=== PATIENT | male | born 1990 | race Caucasian/White ===

== ENCOUNTER 2023-03-17 20:27 | Emergency (ER) | payer OTHER, SELFPAY ==
[2023-03-17 20:36] VITALS: BP 150/92; PULSE 129; RESP 16; TEMP 36.7; O2SAT 95
--- NOTE | 2023-03-17 21:45 | ED.NURSE ---
Dressing placed over sutures, used telfa, applied gauze, and secured in place with kerlix.
--- NOTE | 2023-03-17 23:46 | ED.GENADULT ---
HPI - General Adult General Date Seen: 03/17/23 Chief complaint: Laceration/Wound Stated complaint: cut between thumb and index fingers Time Seen by Provider: 03/17/23 20:49 History of Present Illness HPI narrative: This is a pleasant generally healthy 32-year-old male who presents to the ER today with a linear laceration affecting the webspace between his left hand thumb and index finger. He accidentally lacerated his left hand today when he is using a juke box servicer to set up a baby gate for his new puppy. He did have some fairly brisk bleeding from the wound and applied direct pressure prior to coming in. He has noted some blood soaking through the gauze that he apply. He has a single laceration in the webspace between his thumb and index finger. No other injuries. No associated numbness or tingling in his fingers. Normal range of motion at the MCP, and interphalangeal joints of the thumb and index finger. He thinks he is probably up to date with tetanus because he got updated a few years ago when he cut his finger while working at [employer]. He has no diabetes or immunosuppression. No anticoagulants. Related Data Allergies Allergy/AdvReac Type Severity Reaction Status Date / Time No Known Drug Allergies Allergy Verified 03/17/23 20:35 [facility] Social History Smoking Status: Never smoker Non-prescribed substance use: denies use Exam Narrative: Exam Narrative: Constitutional: Appears well-developed and well-nourished. Alert. Conversant. Non toxic. HENT: Head: Atraumatic. Nose: Nose normal. Mouth/Throat: Oral mucosa is clear and moist. no trismus. Pharynx normal. Tonsils symmetric. No tonsillar enlargement, erythema, or exudate. Eyes: Conjunctivae normal. EOM normal. Pupils equal, round, and reactive to light. No scleral icterus. Neck: Normal range of motion. Neck supple. No tracheal deviation present. Cardiovascular: Normal rate, regular rhythm. No gallop. No friction rub. No murmur heard. Symmetric radial artery pulses Pulmonary/Chest: Effort normal. No stridor. No respiratory distress. No wheezes. No rales. No rhonchi . No tenderness. Abdominal: Soft. Bowel sounds normal. No distension. No mass. No tenderness. No rebound. No guarding. Musculoskeletal: RUE: Normal range of motion. No tenderness. No deformity LUE: He has a 3 cm linear laceration affecting the webspace between his thumb and index finger. It does extend more onto the dorsum of the hand not onto the palmar surface. When I inspect the wound he does have a tiny pulsatile bleeder from what appears to be a artery just below the surface of his skin. He has intact radial, median, ulnar nerve motor and sensory function. Intact digital nerve function in the thumb and index finger. Normal MCP and IP joint flexion and extension of the thumb. Normal MCP, PIP, DI P joint flexion extension in the finger. We placed a blood pressure cuff on the forearm and created a temporary tourniquet. Wound inspected in a bloodless field. No foreign body. No visible deep structure injuries. Wound was closed using simple interrupted sutures . Care was taken to place this did for suture directly over the small artery that had been bleeding prior to the tourniquet. After tourniquet was taken down he had no further bleeding. Good tamponade of the small bleeding contain is artery. Normal range of motion. No tenderness. No deformity RLE: Normal range of motion. No edema. No tenderness. No deformity LLE: Normal range of motion. No edema. No tenderness. No deformity Lymph: No cervical adenopathy. Neurological: Alert and oriented to person, place, and time. Normal strength. CN II-VII intact. No sensory deficit. GCS eye subscore is 4. GCS verbal subscore is 5. GCS motor subscore is 6. Normal coordination Skin: Skin is warm and dry. No rash noted. No pallor. Normal capillary refill. Psychiatric: Normal mood. Normal affect. Const: Vital Signs, click to edit/add: Vital Signs - 24 hr 03/17/23 20:36 Temperature 98.1 F Pulse Rate [Right Pulse Oximeter] 129 H Respiratory Rate 16 Blood Pressure [Ri ght Upper Arm] 150/92 H Pulse Oximetry 95 Oxygen Delivery Me thod Room Air Course Vital Signs Vital signs: Initial Vital Signs Temperature 98.1 F 03/17/23 20:36 Temperature Source Temporal Artery Scan 03/17/23 20:36 Pulse Rate 129 H 03/17/23 20:36 Pulse Rhythm Regular 03/17/23 20:36 Respiratory Rate 16 03/17/23 20:36 Blood Pressure 150/92 H 03/17/23 20:36 Blood Pressure Mean 111 H 03/17/23 20:36 Blood Pressure Position Sitting 03/17/23 20:36 Pulse Oximetry 95 03/17/23 20:36 Oxygen Delivery Method Room Air 03/17/23 20:36 Vital Signs Temperature 98.1 F 03/17/23 20:36 Pulse Rate 129 H 03/17/23 20:36 Respiratory Rate 16 03/17/23 20:36 Blood Pressure 150/92 H 03/17/23 20:36 Pulse Oximetry 95 03/17/23 20:36 Oxygen Delivery Method Room Air 03/17/23 20:36 Temperature 98.1 F 03/17/23 20:36 Pulse Rate 129 H 03/17/23 20:36 Respiratory Rate 16 03/17/23 20:36 Blood Pressure 150/92 H 03/17/23 20:36 Pulse Oximetry 95 03/17/23 20:36 Oxygen Delivery Method Room Air 03/17/23 20:36 Medical Decision Making MDM Narrative Medical decision making narrative: Findings and exam are consistent with an uncomplicated laceration which was repaired as noted above. There is no evidence at this time to suggest any associated fracture or foreign body. There is no evidence to suggest tendon and patient is neurologically in tact. He did have a small pulsatile bleeder that seem to come from a tiny artery in the dermis of the skin. Bleeding was controlled by carefully closing the wound. At this point I do not think he needs referral to vascular surgery. This does not appear to be 1 of the deep arteries in the arcade of his hand. The patient is to follow up for suture removal as instructed in 9-10 days. Indications to seek urgent reevaluation and signs of infection (including but not limited to increasing pain, redness, swelling, fevers, and drainage) were reviewed. Tetanus is up-to-date. This is a clean and non-contaminated wound in which prophylactic antibiotics are not indicated. An understanding of the discharge instructions and need for follow up were verbally confirmed. Discharge Plan Discharge Clinical Impression: Laceration Patient Disposition: Home, Self-Care Instructions: Laceration (ED), Finger Laceration (ED) Additional Instructions: Please follow-up with your regular doctor or the Urgent Care, or return to the ER for suture removal in 10 days. Beginning on Tuesday morning, take the dressing off once per day, wash the wound gently with warm water. Dry the wound gently then reapply antibiotic ointment and a bandage. Keep the wound covered with a bandage in dry other than with her cleaning it. Avoid submerging your hand an underwater. Do not lift more than 2 lb with her left hand until the sutures are removed so that you can avoid ripping your sutures through. If you have any concerns such as infection (redness, swelling, pus draining from the wound), bleeding, numbness in your hand, or any other problems, please come back to the ER right away. Stand Alone Forms: [facility] Info Instructions Procedures Laceration Left hand, 1st and 2nd digit web space laceration: Pre procedure diagnosis: Left hand thumb and index finger webspace laceration Verification/time out: correct site Site: hand (Left hand thumb and index finger webspace) Side (If applicable): left Size (cm): 3 Description: linear Depth: simple, single layer Local Anesthetic: bupivacaine 0.25% and with epi Amount of anesthesia used (mL): 4 Skin layer closed with: nylon Size (cm): 5-0 Number of sutures: 9
== END 2023-03-17 22:00 | disposition home or self-care (01) ==
LOC: ED 21:57
PROVIDERS: Emergency Provider Emergency Medicine
DX: S61.412A Laceration without foreign body of left hand, initial encounter (principal)
CPT/HCPCS: 12002; 99283